=== PATIENT | female | born 1950 | race Caucasian/White ===

== ENCOUNTER → 2017-11-02 | Outpatient (CLI) | payer OTHER, MEDICARE ==
[~2017-11-02] MED LIST: LEVO88TA3 PO; LISI-792 PO; ONDA4TAB7 SL; SERT1TAB68 PO
--- NOTE | 2017-11-02 16:59 | DIAGNOSTIC IMAGING REPORT ---
PELVIS/BILATERAL HIP 2 VIEWS HISTORY: 67 years-old Female RIGHT HIP PAIN chronic bilateral hip pain COMPARISON: None available TECHNIQUE: AP view of the pelvis with 2 views of the bilateral hips FINDINGS: Bones are mildly demineralized. There is moderate left and moderate to severe right hip osteoarthritis. Degenerative changes of the SI joints, pubic symphysis and lower lumbar spine are also noted. There is no acute fracture or dislocation. Phleboliths are noted within the pelvis. IMPRESSION: 1. No acute fracture or dislocation. 2. Osteoarthritis of the bilateral hips, moderate to severe on the right. The above report was generated using voice recognition software. It may contain grammatical, syntax or spelling errors. Electronically signed by: Jan Damon M.D. 11/02/2017 4:57 PM Dictated Date/Time: 11/02/2017 4:55 PM
== END | disposition home or self-care (01) ==
LOC: C.RAD 16:07 → MERGE 16:07
PROVIDERS: ATTEND Family Medicine
DX: M16.0 Bilateral primary osteoarthritis of hip (principal)

== ENCOUNTER 2020-02-15 05:12 | Observation (INO) ==
--- NOTE | 2020-01-29 15:05 | PAT Medication Instructions ---
Medication Instructions Date of Service January 29, 2020 Home Medications carvedilol 6.25 mg PO BID cholecalciferol (vitamin D3) [Vitamin D3] 1,000 unit PO QAM lisinopril 20 mg PO QAM sertraline 100 mg PO QAM levothyroxine 112 mcg PO QAM pravastatin 40 mg PO QPM DO NOT take the morning of surgery cholecalciferol (vitamin D3) [Vitamin D3] 1,000 unit PO QAM lisinopril 20 mg PO QAM Take morning of surgery With a small sip of water, OTHERWISE NOTHING TO EAT OR DRINK AFTER MIDNIGHT: carvedilol 6.25 mg PO BID sertraline 100 mg PO QAM levothyroxine 112 mcg PO QAM Take evening before surgery carvedilol 6.25 mg PO BID pravastatin 40 mg PO QPM Other Notes If you have any questions please call us at [phone] or [phone] or [phone] or [phone]
--- NOTE | 2020-01-31 13:02 | Anesthesiology Consultation ---
Date of Service January 31, 2020 Assessment & Plan (1) Encounter for pre-operative examination: COVID Status: As of 01/30 assessment, patient denies travel to endemic area, known exposure/sick contacts, or symptoms of COVID19. Patient instructed that they and their household members must follow strict social distancing guidelines, wear a mask in public and avoid travel for 14 days prior to surgery. Preoperative COVID19 testing to be completed prior to surgery per surgeon's ar rangements. Patient made aware to self-isolate as much as possible between COVID testing and surgery. S/P RTHA 2018 -- SAB x 1 attempt, well tolerated. Uneventful surgical/anesthetic course. Chart Review Chart Review: Acceptable Risk for Surgery and Patient seen in Pre Admission Testing Teaching & Discussion Instructed NPO after midnight before surgery, except medications with 15 cc of water. Medication instructions provided according to the PAT guidelines. History Surgery Operation Date: 02/18/20 09:40 Proposed Procedures p Left Anterior Total Hip Arthroplasty - Louie Cabrera DO Height/Weight Height: 5 ft 5 in Weight: 89 kg Allergies Allergy/AdvReac Type Severity Reaction Status Date / Time No Known Allergies Allergy Mild Verified 01/29/20 08:11 Medications Home Medications Medication Instructions Recorded Confirmed Last Taken carvedilol 6.25 mg PO BID 12/27/17 01/29/20 01/20/18 03:30 cholecalciferol (vitamin D3) 1,000 unit PO QAM 12/27/17 01/29/20 01/19/18 10:00 [Vitamin D3] lisinopril 20 mg PO QAM 12/27/17 01/29/20 01/19/18 10:00 sertraline 100 mg PO QAM 12/27/17 01/29/20 01/20/18 03:30 levothyroxine 112 mcg PO QAM 01/29/20 01/29/20 Unknown pravastatin 40 mg PO QPM 01/29/20 01/29/20 Unknown Past Medical History Medical History (Updated 01/31/20 @ 15:06 by Vahid Roy) Anxiety and depression Hx of migraines Hyperlipidemia Hypertension Hypothyroidism Obesity Osteoarthritis T wave inversion in EKG Noted on pre-op eval in 2018. Sent to cardiology, echo WNL. Pt has very good functional status, felt no further w/u indicated. NARGIS performed without incident. Exercise / Class Metabolic Activity II 4-5 Yardwork/Stairs/Walk up hill (Denies CP or SOB with 1 FOS) Past Family History Family History Mother Family history of diabetes mellitus Past Surgical History Surgical History (Updated 01/29/20 @ 08:19 by Allyssa Wallace RN) History of x2 History of cholecystectomy History of total right hip replacement (~2018) [place] teeth removed Past Anesthesia History No Hx of Anesthesia Complications and No Family Hx of Anesthesia Complications History of PONV No Hx of PONV and No Hx of Motion Sickness Social History Smoking Status: Former smoker tobacco type: cigarettes Do You Dip or Chew Tobacco: No Smoking End Date: JUNE 2019 Hx Alcohol Use: Yes Alcohol type: wine alcohol intake frequency: a few times a week Hx Substance Use: No substance use type: does not use Review of Systems Pt denies any recent chest pain, shortness of breath, palpitations, cough, fever, URI, or uncontrolled acid reflux. Physical Exam Vital Signs BP: 132/82 P: 67bpm SPO2: 95% RA T: 98.7 F R: 16 ENMT Mouth: + dental restorations (few crowns, including one upper incisor); no chipped teeth and no loose teeth Thyromental Distance: > or= 3.5 Finger Breadths Mallampati Class: I Neck normal visual inspection and + short neck; neck extension not limited Respiratory normal respiratory effort Auscultation: lungs clear to auscultation bilaterally Cardiovascular Rate/Rhythm: regular rate and regular rhythm Heart Sounds: no murmur Extremities: no edema Testing Laboratory Results 01/31/20 13:16 PT 10.3 Seconds (9.0-12.0) 01/31/20 13:16 INR 1.0 (0.9-1.1) 01/31/20 13:16 APTT 28.0 Seconds (21.0-31.0) 01/31/20 13:16 Blood Type A Positive 01/31/20 13:16 Antibody Screen NEGATIVE 01/31/20 13:16 01/10/20 SODIUM: 139 POTASSIUM: 4.7 CHLORIDE: 102 CO2: 27 BUN: 17 CREATININE: 0.8 GLUCOSE: 106 Electrocardiogram Date: 01/31/20 Findings: + NSR @ (65bpm) Minimal voltage criteria for LVH, may be normal variant. Possible old inferior infarct (cited on or before 01/04/18). Chronic T-wave inversion in anterolateral leads. No significant change from 01/04/18. Chest X-Ray Date: 01/31/20 Findings: + NAD Echocardiogram Date: 01/11/18 EF: 60-65% LV Function: normal RWMA: + none Valvular Disease: + no significant valvular disease
--- NOTE | 2020-01-31 13:43 | XRay Report ---
XR chest Pre-admission PA/Lat HISTORY: 69 years-old Female PAT preoperative exam. No acute chest complaints COMPARISON: Chest radiographs 01/04/2018 TECHNIQUE: PA and lateral views of the chest FINDINGS: Cardiomediastinal and hilar silhouettes are within normal limits. No pneumothorax, pleural effusion, airspace consolidation or overt pulmonary edema. Cholecystectomy. Degenerative changes of the shoulde rs and spine. IMPRESSION: No acute process. ACT 112: Negative or not required by law. The above report was generated using voice recognition software. It may contain grammatical, syntax o r spelling errors. Electronically signed by: Jan Damon M.D. 01/31/2020 1:42 PM
[2020-01-31 13:57] LABS: Basophils # (auto) 0.03 K/uL (0-0.2); Basophils % (auto) 0.4 %; Eosinophils # (auto) 0.18 K/uL (0-0.5); Eosinophils % (auto) 2.6 %; Hematocrit (blood only) 42.6 % (37-47); Hemoglobin 14.2 g/dL (12.0-16.0); Immature Granulocytes # (auto) 0.01 K/uL (0.00-0.02); Immature Granulocytes % (auto) 0.1 %; Lymphocytes # (auto) 2.11 K/uL (1.2-3.4); Lymphocytes % (auto) 30.2 %; Mean Corpuscular Hemoglobin 30.9 pg (25-34); Mean Corpuscular Hgb Conc 33.3 g/dL (32-36); Mean Corpuscular Volume 92.8 fL (80-100); Mean Platelet Volume 10.9 fL (7.4-10.4); Monocytes # (auto) 0.49 K/uL (0.11-0.59); Neutrophils # (auto) 4.16 K/uL (1.4-6.5); Neutrophils % (auto) 59.7 %; Platelet Count 215 K/uL (130-400); RDW Coefficient of Variation 13.5 % (11.5-14.5); RDW Standard Deviation 45.8 fL (36.4-46.3); Red Blood Count 4.59 M/uL (4.2-5.4); White Blood Count 6.98 K/uL (4.8-10.8)
[2020-01-31 14:12] LABS: Prothrombin Time 10.3 Seconds (9.0-12.0)
--- NOTE | 2020-01-31 15:24 | Electrocardiogram Report ---
Test Reason : Blood Pressure : / mmHG Vent. Rate : 065 BPM Atrial Rate : 065 BPM P-R Int : 160 ms QRS Dur : 094 ms QT Int : 412 ms P-R-T Axes : 021 020 130 degrees QTc Int : 428 ms Normal sinus rhythm Minimal voltage criteria for LVH, may be normal variant Possible Old Inferior infarct (cited on or before 04-JAN-2018) Chronic T-wave inversion in Anterolateral leads Minimal ST elevation in Inferior leads Abnormal ECG When compared with ECG of 04-JAN-2018 15:10, No significant change was found Confirmed by Clint Figueroa ([id number]) on 01/31/2020 3:24:20 PM Referred By: Louie Cabrera Confirmed By:Clint Figueroa
--- NOTE | 2020-02-14 08:33 | History & Physical Report ---
Date of Service February 14, 2020 Assessment & Plan (1) Degenerative joint disease of left hip: We will proceed with a left total hip arthroplasty. Postoperatively she will be started on aspirin for DVT prophylaxis and kept overnight for postoperative medical management. She plans to use energy physical therapy upon discharge Present on Admission?: Yes History of Present Illness Chief Complaint: Primary osteoarthritis of the left hip Primary Care Provider: Roseanne Logan DO Brie is a pleasant 69-year-old female who is been dealing with chronic increasing left hip pain. X-rays and clinical examination have been diagnostic for advanced osteoarthritis of the left hip. After failing conservative treatment, she has elected proceed with a left total hip arthroplasty. She does have a history of a right hip replacement done in January 2018 and she has done very well with that. Allergies Allergy/AdvReac Type Severity Reaction Status Date / Time No Known Allergies Allergy Mild Verified 01/29/20 08:11 Home Medications Home Medications Medication Instructions Recorded Confirmed Type carvedilol 6.25 mg PO BID 12/27/17 01/29/20 History cholecalciferol (vitamin D3) 1,000 unit PO QAM 12/27/17 01/29/20 History [Vitamin D3] lisinopril 20 mg PO QAM 12/27/17 01/29/20 History sertraline 100 mg PO QAM 12/27/17 01/29/20 History levothyroxine 112 mcg PO QAM 01/29/20 01/29/20 History pravastatin 40 mg PO QPM 01/29/20 01/29/20 History Past Med/Surg History Medical History Anxiety and depression Hx of migraines Hyperlipidemia Hypertension Hypothyroidism Obesity Osteoarthritis T wave inversion in EKG Noted on pre-op eval in 2017. Sent to cardiology, echo WNL. Pt has very good functional status, felt no further w/u indicated. NARGIS performed without incident. Surgical History History of x2 History of cholecystectomy History of total right hip replacement (~2017) [place] teeth removed Family History Mother Family history of diabetes mellitus Social History Smoking Status: Former smoker Second Hand Exposure: No; Hx Alcohol Use: Yes Alcohol type: wine Hx Substance Use: No Preferred Language: Thai Communication Ability: Effective Visual Impairment: No Limitations Windscreen Fitter Required: No Beliefs That Will Affect Care: Buddhist Buddhist Beliefs: MU-ISM Current Living Situation: Spouse Feels Safe at Home: Yes Assistive Devices: Glasses Review of Systems Review of Systems: All systems reviewed & are unremarkable except as noted in HPI & below Physical Exam Constitutional: WD/WN, vitals as above Eyes: PERRL, conjunctivae normal, anicteric sclerae ENMT: external ear and nose normal, oropharynx normal Neck: trachea midline, no thyromegaly Respiratory: normal respiratory effort Cardiovascular: RRR, no murmur, no edema Gastrointestinal (Abdomen): normal bowel sounds, soft, nontender, no hepatosplenomegaly Musculoskeletal: Physical examination of the left hip reveals decreased range of motion with flexion, internal and external rotation. There is significant groin pain with forced internal rotation of the hip his leg lengths are essentially equal. Psychiatric: A+Ox3, euthymic affect Results & Data Results & Data ([facility]) Diagnostic Findings Radiographs of the left hip and pelvis demonstrate advanced osteoarthritis with joint space narrowing osteophyte formation and [id number] articulation. PG Care Time/CCT Total # of Minutes Spent Total Time Spent with Patient: Total time spent is greater than 50% in coordination of care (as documented) at patient's floor/unit and/or counseling patient: Coding Level of Care Code None Diagnoses Degenerative joint disease of left hip M16.12
[2020-02-15] MEDS ORDERED: ceFAZolin 2000MG 2,000 MG/15 ML SYR IV SCH (06:00)
[2020-02-15] MEDS ORDERED: GABAPENTIN 300 MG CAP PO SCH (06:00)
[2020-02-15] MEDS ORDERED: FAMOTIDINE 20 MG TAB PO SCH (06:00)
[2020-02-15] MEDS ORDERED: TRANEXAMIC ACID 1,000 MG **IV Intra-op IV SCH (06:00)
[2020-02-15] MEDS ORDERED: dexAMETHasone 4 MG TAB PO SCH (06:00)
[2020-02-15] MEDS ORDERED: LR 500ML BOLUS, THEN 15ML/HR IV SCH (06:00)
[2020-02-15] MEDS ORDERED: TRANEXAMIC ACID 1,000 MG **IV Pre-op IV SCH (06:00)
[2020-02-15] MEDS ORDERED: ROPIVACAINE 0.5% HCL/PF 150 MG, BUPIVACAINE 0.5% MPF 30 ML, EPINEPHrine 30MG/30ML (OR U... INSTIL SCH (06:00)
[2020-02-15] MEDS ORDERED: LR 60ML/HR IV SCH (06:00)
[2020-02-15] MEDS ORDERED: ACETAMINOPHEN 500 MG TAB PO SCH (06:00)
[2020-02-15] MEDS ORDERED: BUPIVACAINE 0.5 % 5 MG/1 ML PF 10ML VIAL ONE (06:24)
--- NOTE | 2020-02-15 06:35 | History & Physical Bridge Note ---
Date of Service February 15, 2020 History & Physical Bridge Note I have examined the patient, reviewed the History & Physical and in the interval since the performance of the History & Physical I have noted the following changes of clinical significance: no changes noted
[2020-02-15] MEDS ORDERED: fentaNYL citrate 100 MCG/2 ML VIAL ONE (06:36)
[2020-02-15] MEDS ORDERED: MIDAZOLAM HCL 1 MG/ML 2ML VIAL ONE ×2 (06:36→07:02)
[2020-02-15] MEDS ORDERED: ATROPINE SULFATE 0.1 MG/ML 10ML SYR IV PRN (06:37)
[2020-02-15] MEDS ORDERED: ONDANSETRON INJ 2 MG/ML 2 ML VIAL IV PRN ×2 (06:37→09:44)
[2020-02-15] MEDS ORDERED: fentaNYL citrate 100 MCG/2 ML VIAL IV PRN (06:37)
[2020-02-15] MEDS ORDERED: ePHEDrine sulfate 50 MG/ML AMP IV PRN (06:37)
[2020-02-15] MEDS ORDERED: ORTHO JOINT ANESTHETIC ONE (06:38)
[2020-02-15] MEDS ORDERED: PROPOFOL IV EMULSION 10 MG/ML 20 ML VIAL IV ONE (06:44)
--- NOTE | 2020-02-15 08:24 | Operative Report ---
PG Post Operative Report Pre & Post Diagnosis Operation Date: 02/15/20 07:00 Pre-Op Diagnosis: Left Hip Degenerative Joint Disease Post-Op Diagnosis: Left Hip Degenerative Joint Disease I identified the patient and participated in the time-out.: Yes Procedure Operation Date: 02/15/20 07:00 Actual Procedures p Left Anterior Total Hip Arthroplasty(Left) - Louie Cabrera DO Surgeon Louie Cabrera DO Scientist Immunology Louie Haywood PAC Estimated Blood Loss 250 Findings Consistent with Post-Op Diagnosis Specimens Left femoral head Complications none Disposition Disposition: Recovery Room Indications Brie is a pleasant 70-year-old female who is been dealing with chronic increasing left hip and groin pain. X-rays and clinical examination have been diagnostic for advanced osteoarthritis of the left hip. After failing conservative treatment, she has elected to proceed with a left anterior total hip arthroplasty. She does have a history of a right hip replacement done 2 years ago and has done well with that. Description of Procedure Implants used I used a Biomet Taperloc total hip arthroplasty system with a size 9 standard offset Taperloc stem, a 48 mm G7 cup with a 25mm screw, an E1 polyethylene liner, a 32 mm ceramic head with a 0 neck. Maria Del Rosario arrived at the hospital for the above procedure. She was seen in the preoperative holding area and the operative extremity was identified and signed. She was given a spinal anesthetic, a preoperative antibiotic, and TXA. She was then taken back to the operating room and laid on the table in the supine position. She was given basic sedation. The operative leg was secured to a Puristst leg positioner. The hip was then prepped and draped in sterile fashion. A timeout was done and the patient and the operative extremity was pr operly identified. An anterior approach was used. Dissection was taken down through the fascia and the tensor muscle belly was retracted laterally and the rectus was retracted medially. The circumflex vessels were identified and ligated. The capsule was then incised and tagged for later repair. The femoral neck was then cut and the femoral head was removed. The acetabulum was exposed. Time was spent doing a complete circumferential labral release. Sequential reaming of the acetabulum up to a size 47 reamer was done. Final reamings were done under fluoroscopy to ensure appropriate version. A Biomet 48 mm G7 cup was then impacted into place. A single 25 mm screw was placed. The E1 polyethylene liner was then snapped into place. Surrounding soft tissues were then injected with 100 cc of an orthopedic pain control cocktail. The proximal femur was then exposed. Sequential broaching up to a size 9 broach was done. Off that broach a size 32 head with a 0 neck was trialed. The hip was reduced and fluoroscopic images showed anatomic alignment of the implants in acceptable length. The broach was removed. The final size 9 standard offset Taperloc stem was then impacted into place. A ceramic 32 mm head with a 0 neck was then impacted onto the stem and the hip was reduced. Final fluoroscopic images showed anatomic alignment of the hip. The capsule was then closed with #1 Vicryl suture. A dilute betadyne lavage was then done for 3 minutes. The joint was then irrigated with normal saline solution. The fascia was closed with #1 PDS suture. Skin was closed with 2-0 Vicryl, cedric, and a Silverlon dressing. She was then transferred to a hospital bed and taken to the post anesthesia care unit in stable condition. She tolerated the procedure well. Louie Haywood PA-C, was present for the entire procedure. He was critical for patient positioning, prepping, draping, retraction exposure, wound closure and application of sterile dressing. I attest to the content of the Intraoperative Record and any orders documented therein. Any exceptions are noted below.
[2020-02-15] MEDS ORDERED: ePHEDrine sulfate 50 MG/ML SYR ONE (08:43)
--- NOTE | 2020-02-15 08:45 | Fluoroscopy Report ---
FL hip LT 1V CLINICAL HISTORY: Left anterior total hip arthroplasty. COMPARISON STUDY: None. FLUOROSCOPY TIME: 26. FINDINGS: A single fluoroscopic spot image of the left hip demonstrates a left total hip arthroplasty . The hardware is intact. No fracture or dislocation. IMPRESSION: Fluoroscopy provided for left total hip arthroplasty. ACT 112: Negative or not required by law. Electronically signed by: Augie Lyle M.D. 02/15/2020 8:44 AM
--- NOTE | 2020-02-15 09:37 | Anesthesiology Progress Note ---
Date of Service February 15, 2020 Anesthesia Post Procedure Vital Signs Vital Signs: Temp Pulse Pulse Resp BP BP Pulse Ox 02/15/20 09:25 97.3 F L 55 L 16 98/63 L 93 02/15/20 09:15 55 L 15 108/63 92 02/15/20 09:05 55 L 15 90/60 L 93 02/15/20 08:55 56 L 12 98/63 L 93 02/15/20 08:47 97.5 F L 65 15 106/56 L 96 02/15/20 05:53 98.1 F 69 18 163/89 H 95 Transfer of Care Handoff Completed per policy Notes Mental Status: alert / awake / arousable and participated in evaluation Patient Amnestic to Procedure: Yes Nausea / Vomiting: adequately controlled Pain: adequately controlled Airway Patency, RR, SpO2: stable & adequate BP & HR: stable & adequate Hydration State: stable & adequate Neuraxial Anesthesia: was administered and sensory block is resolving Anesthetic Complications: no major complications apparent and Pt Satisfied with anesthetic care
[2020-02-15] MEDS ORDERED: HYDROmorphone INJ 0.5 MG/0.5 ML SYR IV PRN (09:44)
[2020-02-15] MEDS ORDERED: bisacodyL 10 MG SUPP PR PRN (09:44)
[2020-02-15] MEDS ORDERED: METOCLOPRAMIDE HCL INJ 5 MG/ML 2 ML VIAL IV PRN (09:44)
[2020-02-15] MEDS ORDERED: NALOXONE HCL 0.4 MG/1 ML VIAL/CARP IV PRN (09:44)
[2020-02-15] MEDS ORDERED: MAGNESIUM HYDROXIDE SUSP 30 ML UDC PO PRN (09:44)
--- NOTE | 2020-02-15 09:50 | XRay Report ---
SINGLE VIEW PELVIS; SINGLE VIEW LEFT HIP CLINICAL HISTORY: Postoperative examination. FINDINGS: An AP portable view of the hips and pelvis with a crosstable lateral portable view of the l eft hip are obtained. A bipolar left hip arthroplasty is in near-anatomic alignment. A single cortic al lag screw transfixes the acetabular cup. No acute fracture is identified. There are expected posto perative changes overlying the left hip including skin clips, subcutaneous gas, and soft tissue swell ing. A right hip arthroplasty is in place. IMPRESSION: Expected postoperative findings status post left hip arthroplasty. No acute fracture is s een. ACT 112: Negative or not required by law. Electronically signed by: Jori Goldberg M.D. 02/15/2020 9:49 AM
[2020-02-15] MEDS: SODIUM CHLORIDE 0.9% 1000ML 1,000 ML IV SCH ×2 (10:08→20:12)
[2020-02-15] MEDS: SERTRALINE HCL 100 MG TABLET PO SCH (11:04)
[2020-02-15] MEDS: LEVOTHYROXINE SODIUM 112 MCG TABLET PO SCH (11:04)
[2020-02-15] MEDS: carvediloL 6.25 MG TAB PO SCH ×2 (11:04→20:59)
[2020-02-15] MEDS: ASPIRIN 81 MG ECTAB PO SCH ×2 (11:06→20:58)
[2020-02-15] MEDS: DOCUSATE SODIUM 100 MG CAP PO SCH ×2 (11:06→20:57)
[2020-02-15] MEDS: MULTIVITAMIN TAB PO SCH (11:06)
[2020-02-15] MEDS: lisinopril 20 MG TAB PO SCH (11:06)
[2020-02-15] MEDS: KETOROLAC TROMETHAMINE 15 MG/ML VIAL IV SCH ×3 (13:02→23:20)
[2020-02-15] MEDS: ACETAMINOPHEN 500 MG TAB PO SCH ×2 (14:32→20:58)
[2020-02-15] MEDS: ceFAZolin 2000MG 2,000 MG/15 ML SYR IV SCH ×2 (14:33→20:57)
[2020-02-15] MEDS: oxyCODONE HCL IR 5 MG TAB (IMMEDIATE RELEASE) PO PRN ×2 (20:57→23:20)
[2020-02-15] MEDS ORDERED: SENNA 8.6 MG TAB PO SCH (21:00)
[2020-02-15] MEDS ORDERED: PRAVASTATIN SOD 40 MG TAB PO SCH (21:00)
[2020-02-16] MEDS: LEVOTHYROXINE SODIUM 112 MCG TABLET PO SCH (06:04)
[2020-02-16] MEDS: KETOROLAC TROMETHAMINE 15 MG/ML VIAL IV SCH (06:04)
[2020-02-16] MEDS: ACETAMINOPHEN 500 MG TAB PO SCH (06:05)
[2020-02-16 06:56] LABS: Hematocrit (blood only) 39.5 % (37-47); Hemoglobin 13.3 g/dL (12.0-16.0); Immature Granulocytes # (auto) 0.03 K/uL (0.00-0.02); Immature Granulocytes % (auto) 0.2 %; Lymphocytes # (auto) 1.36 K/uL (1.2-3.4); Lymphocytes % (auto) 10.7 %; Mean Corpuscular Hemoglobin 30.8 pg (25-34); Mean Corpuscular Hgb Conc 33.7 g/dL (32-36); Mean Corpuscular Volume 91.4 fL (80-100); Mean Platelet Volume 10.4 fL (7.4-10.4); Monocytes # (auto) 1.45 K/uL (0.11-0.59); Monocytes % (auto) 11.4 %; Neutrophils % (auto) 77.7 %; Platelet Count 183 K/uL (130-400); RDW Coefficient of Variation 13.2 % (11.5-14.5); RDW Standard Deviation 44.1 fL (36.4-46.3); Red Blood Count 4.32 M/uL (4.2-5.4); White Blood Count 12.74 K/uL (4.8-10.8)
--- NOTE | 2020-02-16 07:16 | Orthopedic Progress Note ---
Date of Service February 16, 2020 Assessment & Plan (1) Status post left hip replacement: Overall she is doing well. She is not having much pain in the left hip. She will be seen by physical therapy today for ambulation and range of motion exercises. She is on aspirin for DVT prophylaxis. She can be discharged home later today. She will follow-up with orthopedics in 2 weeks. Present on Admission?: Yes Admission and Anticipated Discharge Date Admission Date: February 15, 2020 Uvaldo Mcdaniel was seen and examined at bedside this morning. Overall she is doing very well. She denies any much pain in the left hip. She has been up and ambulating to the bathroom. She has no complaints. Physical Exam Physical Exam: On physical examination of the left hip, the Silverlon dressing is clean and dry. Her leg lengths are equal. She has active dorsiflexion plantarflexion of the left ankle. Sensations intact throughout. Results & Data ([facility]) Vital Signs (Past 12 Hours) Vital Signs Temp Pulse Resp BP Pulse Ox 02/16/20 02:58 36.8 C 65 16 145/91 H 95 02/15/20 23:13 37 C 68 16 123/81 95 Laboratory Results H & H 01/31/20 02/16/20 Range/Units 13:16 06:47 Hgb 14.2 13.3 (12.0-16.0) g/dL Hct 42.6 39.5 (37-47) % Coagulation 01/31/20 Range/Units 13:16 INR 1.0 (0.9-1.1) Diagnostic Findings Postoperative x-rays of the left hip show the prosthesis to be in anatomic alignment without any evidence of fracture, dislocation, or loosening. PG Care Time/CCT Total # of Minutes Spent Total Time Spent with Patient: Total time spent is greater than 50% in coordination of care (as documented) at patient's floor/unit and/or counseling patient: Coding Level of Care Code None Diagnoses Status post left hip replacement Z96.642
--- NOTE | 2020-02-16 07:17 | Discharge Summary ---
Date of Service February 16, 2020 Admission HPI Per Admitting Provider Brie is a pleasant 69-year-old female who is been dealing with chronic increasing left hip pain. X-rays and clinical examination have been diagnostic for advanced osteoarthritis of the left hip. After failing conservative treatment, she has elected proceed with a left total hip arthroplasty. She does have a history of a right hip replacement done in January 2018 and she has done very well with that. Principal Diagnosis Left hip replacement Discharge Data Allergies Allergy/AdvReac Type Severity Reaction Status Date / Time No Known Allergies Allergy Mild Verified 02/15/20 05:50 Consultations 02/16/20 08:00 Consult Case Management - Discharge Planning Routine Procedures Performed Operation Date: 02/15/20 07:00 Actual Procedures p Left Anterior Total Hip Arthroplasty(Left) - Louie Cabrera DO Ordered Studies 02/15/20 07:00 FL fluoroscopy <1hr Routine FL hip LT 1V Routine Hospital Course (1) Status post left hip replacement: On February 15, 2020 Ana Lilia arrived at [facility] and underwent a left hip replacement without complication. She had a spinal anesthetic. Postoperatively she was started on aspirin for DVT prophylaxis and transferred to the [facility] orthopedic floors. Her hospital course was uneventful. On postop day #1 her H&H was stable and her pain was well controlled. She was able to participate well with physical therapy doing ambulation and range of motion exercises. She was then discharged home. She will follow-up with orthopedics in 2 weeks. Total Time Total Time Spent Total Time Spent (In Minutes): 20 Discharge Plan Discharge Items Patient Disposition: Home - Home Health Services Reason For Visit: Left Hip Degenerative Joint Disease Discharge Diagnosis: Left hip replacement Activity: As commented below Non-emergency contact: Surgeon Call non-emergency contact if: your wound has increased redness and your wound has increased drainage Follow-up/Referrals: Roseanne Logan DO [Primary Care Provider] - Diet: Regular Addtl Attending Provider Instructions: Activity and Therapy Recommendations: * If you are using [facility] then therapy will be provided at your home until they feel you have accomplished all of your goals. * If you are using [facility] then Physical Therapy will be provided until they feel you are ready to start Outpatient Physical Therapy. * If you are not using home therapy then Outpatient Physical Therapy should start about 3-5 days from your day of surgery. Therapy will last about 6-10 weeks * You were shown a series of exercises in the hospital. Do these exercises three times each day including the exercises you were shown in physical therapy. * Get up and walk several times each day.~ For the first four weeks, try not to stand or walk for more than one hour at a time. If you do stand or walk for more than one hour, you will not hurt anything, but your leg will likely swell.~~ * As you feel comfortable, you may change from the walker or crutches to a cane and~then to independent walking. Medications: * Narcotic You will likely be sent home from the hospital with a prescription for the narcotic pain medication that worked best throughout your stay. * Aspirin Most patients will be required to take Aspirin 81mg twice a day for 6 weeks after surgery. This is obtained [id number] and a prescription is not necessary. * Other medications may be prescribed for specific circumstances. If you have any questions, please call the office at . * Resume previous home medications unless otherwise instructed TEDs/Elastic Stockings: The white elastic stockings help limit swelling and prevent blood clots from forming in your legs. The more you wear them, the more they work. Wear them for six weeks. Dressing Care: Leave the Silverlon dressing in place for 7 days. After 7 days you may remove the dressing. If the incision is not draining then you may leave the cedric open to air. If there is a little bit of drainage or if the cedric are getting stuck on your clothing then cover the incision with a dry dressing. The cedric will be removed at your 2 week follow-up appointment. Showering: You may shower with the Silverlon dressing in place. Do not let the shower spray hit the dressing directly. Pat the Silverlon dressing dry. If the dressing becomes wet underneath, then simply remove the dressing. Keep the incision dry until you are 7 days out from the day of surgery. After 7 days you may remove the Silverlon dressing and shower with the cedric exposed. Let soapy water run over the cedric and pat them dry. Do not scrub or soak the incision. Things To Watch For: * Drainage from the incision site that occurs more than one week after your surgery. * Increased redness at the incision site. * Fever above 102 degrees Fahrenheit. * Unusual chest pain or shortness of breath. * Call [facility] at with any of the above problems Follow-Up Visit: Follow-up with Dr. Cabrera's PA (Louie Haywood) 2-3 weeks after your day of surgery. He will remove your cedric and answer any questions. If you have any additional questions or concerns, Dr Cabrera is usually in the office at the same time and will be available An appointment was probably scheduled when you signed-up for surgery in the office. If you have any questions call Office Instructions: More detailed instructions as well as Frequently Asked Questions were provided in a folder by our office when you signed-up for surgery. Please review these instructions when you get home. If you have any further questions or concerns, please feel free to call the office at [phone] Pending Studies at Discharge: No Stand-Alone Forms: [facility], Smoking Cessation Medications and DC Order Prescriptions: New oxycodone 5 mg Tablet 5 mg PO Q4H PRN (Reason: pain) Qty: 30 RF: 0 aspirin 81 mg Tablet,Delayed Release (Dr/Ec) 81 mg PO BID 42 Days Qty: 84 RF: 0 Continued carvedilol 6.25 mg Tablet 6.25 mg PO BID RF: 0 lisinopril 20 mg Tablet 20 mg PO QAM RF: 0 sertraline 100 mg Tablet 100 mg PO QAM RF: 0 cholecalciferol (vitamin D3) [Vitamin D3] 1,000 unit Tablet,Chewable 1,000 unit PO QAM RF: 0 pravastatin 40 mg Tablet 40 mg PO QPM RF: 0 levothyroxine 112 mcg Tablet 112 mcg PO QAM RF: 0 Discharge Orders: Discharge Order (Routine); Ordered 02/16/20 Ordered By: Louie Cabrera Admission Data Admit Date/Time: 02/15/20 08:50 Attending Provider: Louie Cabrera Admit Provider: Louie Cabrera Primary Care Provider: Roseanne Logan Coding Level of Care Code D/C Day Management <30 mins Diagnoses Status post left hip replacement Z96.642
[2020-02-16 07:31] LABS: Calcium 8.1 mg/dl (8.5-10.1); Creatinine Clr Calc Pharmacy 68.4 ml/min; Est GFR (African American) 82.9; Est GFR (Non-African American) 71.5; Potassium 4.3 mmol/L (3.5-5.1)
[2020-02-16] MEDS ORDERED: dexAMETHasone 4 MG TAB PO SCH (08:00)
[2020-02-16] MEDS: ASPIRIN 81 MG ECTAB PO SCH (08:03)
[2020-02-16] MEDS: SERTRALINE HCL 100 MG TABLET PO SCH (08:03)
[2020-02-16] MEDS: DOCUSATE SODIUM 100 MG CAP PO SCH (08:03)
[2020-02-16] MEDS: MULTIVITAMIN TAB PO SCH (08:04)
[2020-02-16] MEDS: carvediloL 6.25 MG TAB PO SCH (08:04)
[2020-02-16] MEDS: lisinopril 20 MG TAB PO SCH (08:05)
[2020-02-16] MEDS: oxyCODONE HCL IR 5 MG TAB (IMMEDIATE RELEASE) PO PRN (08:38)
== END 2020-02-16 10:55 | disposition home health service (06) ==
LOC: ASU 05:12 → 3E 05:12